=== PATIENT | female | born 1990 | race Caucasian/White ===

== ENCOUNTER 2017-02-06 21:31 | Emergency (ER) | payer OTHER, MEDICAID ==
[~2017-02-06] VITALS: Ht 160 cm; Wt 62.8 kg
[~2017-02-06 21:31] MED LIST: DULO20CA45 PO; IBUP-1222 PO; OXYC-302 PO
[2017-02-06] MEDS ORDERED: OMNIPAQUE 350 MG/ML, 100ML BOTTLE ONE (23:00)
[2017-02-06] MEDS ORDERED: SODIUM CHLORIDE FLUSH 10ML SYR IVF ONE (23:00)
[2017-02-06 23:33] LABS: BLOOD UREA NITROGEN 10 mg/dL (7-18)
[2017-02-07 00:56] VITALS: BP 128/79
[2017-02-07] MEDS ORDERED: ONDANSETRON 2MG/ML, 2ML ONE (01:14)
[2017-02-07] MEDS ORDERED: HYDROmorphone 1 MG/ML, 1ML ONE (01:14)
[2017-02-07] MEDS ORDERED: HYDROmorphone 1 MG/ML, 1ML IVPush PRN (01:30)
[2017-02-07] MEDS ORDERED: ONDANSETRON 2MG/ML, 2ML IVPush ONE (01:30)
== END 2017-02-07 02:17 | disposition home or self-care (01) ==
LOC: ED 23:17
DX: R07.89 Other chest pain (principal); F17.200 Nicotine dependence, unspecified, uncomplicated
CPT/HCPCS: 36415; 71010; 71275; 80048; 82040; 84484; 85025; 85379; 85610; 85730; 93005; 93971; 96374; 96375; 99285; J1170; J2405; Q9967

== ENCOUNTER 2017-03-28 14:13 | Emergency (ER) | payer OTHER, MEDICAID ==
[~2017-03-28] VITALS: Ht 162.6 cm; Wt 62.8 kg
[2017-03-28 14:21] VITALS: BP 117/84
[2017-03-28] MEDS ORDERED: HYDR25TA11 PO (14:35)
[2017-03-28] MEDS ORDERED: BUPR150T73 PO (14:35)
[2017-03-28] MEDS ORDERED: VALA500T4 PO (14:38)
== END 2017-03-28 14:57 | disposition home or self-care (01) ==
LOC: ED 14:50
DX: H66.002 Acute suppurative otitis media without spontaneous rupture of ear drum, left ear (principal)
CPT/HCPCS: 99283

== ENCOUNTER 2017-10-01 17:10 | Emergency (ER) | payer MEDICAID ==
[~2017-10-01] VITALS: Ht 160 cm; Wt 62.8 kg
[~2017-10-01 17:10] MED LIST changes: +BUPR150T73 PO; +HYDR25TA11 PO; +VALA500T4 PO
[2017-10-01 17:43] VITALS: BP 106/68
== END 2017-10-01 18:49 | disposition home or self-care (01) ==
LOC: ED 18:40
DX: S63.521A Sprain of radiocarpal joint of right wrist, initial encounter (principal); M79.7 Fibromyalgia; X58.XXXA Exposure to other specified factors, initial encounter; Y93.89 Activity, other specified; Y99.8 Other external cause status; Y92.89 Other specified places as the place of occurrence of the external cause
CPT/HCPCS: 99284

== ENCOUNTER 2018-05-02 12:12 | Emergency (ER) | payer MEDICAID ==
[~2018-05-02] VITALS: Ht 160 cm; Wt 65.5 kg
[2018-05-02 12:25] VITALS: BP 112/73
== END 2018-05-02 13:33 | disposition home or self-care (01) ==
LOC: ED 13:25
DX: K08.89 Other specified disorders of teeth and supporting structures (principal); F32.9 Major depressive disorder, single episode, unspecified; F41.1 Generalized anxiety disorder
CPT/HCPCS: 99283

== ENCOUNTER 2018-05-25 10:49 | Emergency (ER) | payer MEDICAID ==
[~2018-05-25] VITALS: Ht 160 cm; Wt 64.1 kg
[2018-05-25 10:54] VITALS: BP 112/79
[2018-05-25] MEDS ORDERED: ONDANSETRON ODT 4 MG ONE (12:01)
[2018-05-25] MEDS ORDERED: KETOROLAC 30 MG/1 ML ONE (12:01)
[2018-05-25] MEDS ORDERED: KETOROLAC 30 MG/1 ML IM ONE (12:30)
[2018-05-25] MEDS ORDERED: ONDANSETRON ODT 4 MG PO ONE (12:30)
== END 2018-05-25 12:46 | disposition home or self-care (01) ==
LOC: ED 12:30
DX: K08.89 Other specified disorders of teeth and supporting structures (principal); G43.009 Migraine without aura, not intractable, without status migrainosus; F43.10 Post-traumatic stress disorder, unspecified; M79.7 Fibromyalgia; F17.200 Nicotine dependence, unspecified, uncomplicated
CPT/HCPCS: 96372; 99283; J1885; Q0162

== ENCOUNTER 2019-04-27 09:39 | Emergency (ER) | payer BC, MEDICAID ==
[~2019-04-27] VITALS: Ht 160 cm; Wt 63.0 kg
[2019-04-27 09:51] VITALS: BP 91/64
== END 2019-04-27 10:42 | disposition home or self-care (01) ==
LOC: ED 10:36
DX: J03.90 Acute tonsillitis, unspecified (principal); F32.9 Major depressive disorder, single episode, unspecified; G43.909 Migraine, unspecified, not intractable, without status migrainosus; F17.200 Nicotine dependence, unspecified, uncomplicated; F43.10 Post-traumatic stress disorder, unspecified; Z79.899 Other long term (current) drug therapy; Z88.2 Allergy status to sulfonamides
CPT/HCPCS: 99283

== ENCOUNTER 2019-08-23 05:58 | Emergency (ER) | payer BC ==
[~2019-08-23] VITALS: Ht 160 cm; Wt 68.1 kg
[~2019-08-23 05:58] MED LIST changes: +HYDR-826 PO; -HYDR25TA11 PO
[2019-08-23 06:00] VITALS: BP 120/75
--- NOTE | 2019-08-23 07:09 | NUR ---
REPORT RECIEVED FROM SARAH FRANCIS. PLAN OF CARE DISCUSSED. THIS IS A 28 YO FEMALE COMING IN FOR SORE THROAT SINCE YESTERDAY, GETTING WORSE TODAY. ALSO C/O FACIAL CONGETION AND ITCHY EARS. THROAT SWAB IN PROGRESS AT THIS TIME.
== END 2019-08-23 07:24 | disposition home or self-care (01) ==
LOC: ED 06:25
DX: J02.8 Acute pharyngitis due to other specified organisms (principal); B97.89 Other viral agents as the cause of diseases classified elsewhere; G43.919 Migraine, unspecified, intractable, without status migrainosus; F41.9 Anxiety disorder, unspecified
CPT/HCPCS: 87081; 87880; 99283

== ENCOUNTER 2019-09-03 06:57 | Emergency (ER) | payer BC ==
[~2019-09-03] VITALS: Ht 160 cm; Wt 68.0 kg
[2019-09-03 07:00] VITALS: BP 114/74
[2019-09-03] MEDS ORDERED: KETOROLAC 30 MG/1 ML IM ONE (07:30)
[2019-09-03] MEDS ORDERED: KETOROLAC 30 MG/1 ML ONE (07:36)
== END 2019-09-03 08:23 | disposition home or self-care (01) ==
LOC: ED 07:53
DX: S29.012A Strain of muscle and tendon of back wall of thorax, initial encounter (principal); G43.909 Migraine, unspecified, not intractable, without status migrainosus; X58.XXXA Exposure to other specified factors, initial encounter; Y93.89 Activity, other specified; Y92.89 Other specified places as the place of occurrence of the external cause; Y99.8 Other external cause status
CPT/HCPCS: 96372; 99283; J1885

== ENCOUNTER 2019-10-11 15:02 | Emergency (ER) | payer BC ==
[~2019-10-11] VITALS: Ht 160 cm; Wt 63.7 kg
--- NOTE | 2019-10-11 15:49 | NUR ---
Pt transported on [place] to imaging.
[2019-10-11] MEDS ORDERED: KETOROLAC 30 MG/1 ML IM ONE (16:00)
[2019-10-11] MEDS ORDERED: ONDANSETRON ODT 4 MG PO ONE (16:00)
[2019-10-11] MEDS ORDERED: ACETAMINOPHEN 500 MG TABLET PO ONE (16:00)
[2019-10-11 16:16] LABS: RAPID INFLUENZA A Negative (Negative); RAPID INFLUENZA B Negative (Negative)
[2019-10-11] MEDS ORDERED: KETOROLAC 30 MG/1 ML ONE (16:25)
[2019-10-11] MEDS ORDERED: ACETAMINOPHEN 500 MG TABLET ONE (16:25)
[2019-10-11] MEDS ORDERED: ONDANSETRON ODT 4 MG ONE (16:25)
[2019-10-11 16:32] VITALS: BP 134/85
--- NOTE | 2019-10-11 16:44 | NUR ---
Patient given discharge instructions and they have confirmed that they understand the instructions. Patient ambulatory with steady gait. Pt left with d/c paperwork and all personal belongings.
== END 2019-10-11 16:50 | disposition home or self-care (01) ==
LOC: ED 16:26
DX: B34.9 Viral infection, unspecified (principal); G43.909 Migraine, unspecified, not intractable, without status migrainosus; F17.210 Nicotine dependence, cigarettes, uncomplicated
CPT/HCPCS: 71046; 87400; 93005; 96372; 99284; J1885; Q0162

== ENCOUNTER 2019-12-12 21:20 | Emergency (ER) | payer SELFPAY ==
[~2019-12-12] VITALS: Ht 160 cm; Wt 67.7 kg
[2019-12-12 21:22] VITALS: BP 138/74
[2019-12-12 22:41] LABS: MICROSCOPIC AUTO
[2019-12-12 22:48] LABS: CULTURE INDICATED? YES
--- NOTE | 2019-12-12 23:00 | NUR ---
NIL X 1 WHEN CALLED FOR ROOM
--- NOTE | 2019-12-12 23:15 | NUR ---
NIL X 2 WHEN CALLED FOR ROOM.
--- NOTE | 2019-12-12 23:31 | NUR ---
NIL X 3 WHEN CALLED FOR ROOM.
== END 2019-12-12 23:34 | disposition left against medical advice (07) ==
LOC: ED 23:23
DX: R10.13 Epigastric pain (principal); I51.7 Cardiomegaly
CPT/HCPCS: 81001; 87086; 93005; 99284

== ENCOUNTER 2020-07-07 17:40 | Emergency (ER) | payer OTHER ==
[~2020-07-07] VITALS: Ht 160 cm; Wt 73.6 kg
[2020-07-07] MEDS ORDERED: KETOROLAC 30 MG/1 ML IVPush ONE (18:30)
[2020-07-07] MEDS ORDERED: SODIUM CHLORIDE FLUSH 10ML SYR IVF ONE (18:30)
[2020-07-07] MEDS ORDERED: DEXAMETHASONE 4 MG/ML, 1ML IVPush ONE (18:30)
[2020-07-07] MEDS ORDERED: METOCLOPRAMIDE 5 MG/ML, 2ML IVPush ONE (18:30)
[2020-07-07] MEDS ORDERED: SODIUM CHLORIDE 0.9% 1,000ML IVBOLUS ONE (18:30)
[2020-07-07] MEDS ORDERED: DIPHENHYDRAMINE 50 MG/ML, 1ML IVPush ONE (18:30)
[2020-07-07] MEDS ORDERED: DEXAMETHASONE 4 MG/ML, 1ML ONE (18:49)
[2020-07-07] MEDS ORDERED: DIPHENHYDRAMINE 50 MG/ML, 1ML ONE (18:49)
[2020-07-07] MEDS ORDERED: METOCLOPRAMIDE 5 MG/ML, 2ML ONE (18:49)
[2020-07-07] MEDS ORDERED: KETOROLAC 30 MG/1 ML ONE (18:49)
--- NOTE | 2020-07-07 20:03 | NUR ---
sts feels better after meds, ivf infusing. as
[2020-07-07 20:29] VITALS: BP 99/61
== END 2020-07-07 20:31 | disposition home or self-care (01) ==
LOC: ED 18:30
DX: G43.901 Migraine, unspecified, not intractable, with status migrainosus (principal); H57.12 Ocular pain, left eye; F17.210 Nicotine dependence, cigarettes, uncomplicated
CPT/HCPCS: 96361; 96374; 96375; 99284; 99406; J1100; J1200; J1885; J2765; J7030

== ENCOUNTER 2020-12-25 02:16 | Emergency (ER) | payer OTHER ==
[~2020-12-25] VITALS: Ht 160 cm; Wt 79.4 kg
[~2020-12-25 02:16] MED LIST changes: -OXYC-302 PO; +OXYC1TAB14 PO
[2020-12-25 02:18] VITALS: BP 144/95
== END 2020-12-25 03:00 | disposition home or self-care (01) ==
LOC: ED 02:45
DX: S00.511A Abrasion of lip, initial encounter (principal); Z88.2 Allergy status to sulfonamides; X58.XXXA Exposure to other specified factors, initial encounter; Y93.89 Activity, other specified; Y92.89 Other specified places as the place of occurrence of the external cause; Y99.8 Other external cause status
CPT/HCPCS: 99283

== ENCOUNTER → 2021-02-01 | Outpatient (CLI) | payer OTHER ==
[~2021-02-01] MED LIST changes: +CYCL10TA2 PO; +FREM225A INJ; +METR-90 PO; +RIME75TA PO; +ZOLP10TA PO
[2021-02-01 09:17] LABS: BASOPHILS % (AUTO) 1 % (0-1); EOSINOPHILS % (AUTO) 4 % (1-7); LYMPHOCYTES % (AUTO) 34 % (22-44); MEAN CORPUSCULAR HGB CONC 34.2 g/dL (32.4-35.8); MONOCYTES % (AUTO) 8 % (2-9); NEUTROPHILS % (AUTO) 53 % (42-75); PLATELET COUNT 354 x10^3/uL (130-400); RED BLOOD COUNT 5.37 x10^6/uL (3.82-5.3); RED CELL DISTRIBUTION WIDTH 12.4 % (9.6-15.2)
[2021-02-01 09:25] LABS: MD NO
[2021-02-01 09:29] LABS: MICROSCOPIC AUTO
[2021-02-01 09:30] LABS: ALBUMIN 4.2 g/dL (3.4-5.0); ANION GAP 6 mmol/L (5-15); CALCIUM 9.3 mg/dL (8.5-10.1); CHLORIDE 105 mmol/L (98-107)
[2021-02-01 09:36] LABS: ALANINE AMINOTRANSFERASE 97 U/L (12-78); ALKALINE PHOSPHATASE 55 U/L (45-117); BILIRUBIN,TOTAL 0.4 mg/dL (0.2-1.0)
== END | disposition home or self-care (01) ==
LOC: STAR 07:47
PROVIDERS: ATTEND Obstetrics & Gynecology Gynecology
DX: Z01.812 Encounter for preprocedural laboratory examination (principal); N89.8 Other specified noninflammatory disorders of vagina; Z20.822 Contact with and (suspected) exposure to COVID-19
CPT/HCPCS: 36415; 80053; 81001; 84702; 85025; 87086; U0003

== ENCOUNTER 2021-02-07 10:42 | Day surgery (SDC) | payer OTHER ==
[~2021-02-07] VITALS: Ht 160 cm; Wt 76.2 kg
[2021-02-07 11:27] VITALS: BP 115/81
[2021-02-07 11:51] LABS: HCG UR SG 1.024 (1.003-1.030)
[2021-02-07] MEDS ORDERED: CHLORHEXIDINE 15 ML UDC PO ONE (12:00)
[2021-02-07] MEDS ORDERED: LACTATED RINGERS 1,000 ML IV SCH (12:00)
[2021-02-07] MEDS ORDERED: BUPIVACAINE/PF 0.25% ONE (12:24)
[2021-02-07] MEDS ORDERED: SILVER NITRATE STICK TP ONE (12:25)
[2021-02-07] MEDS ORDERED: EPINEPHRINE 1 MG/ML, 1ML ONE (12:25)
[2021-02-07] MEDS ORDERED: FENTANYL PF 250 MCG/5ML ONE (12:42)
[2021-02-07] MEDS ORDERED: MIDAZOLAM 1 MG/ML, 2ML ONE (12:42)
[2021-02-07] MEDS ORDERED: PROPOFOL 10 MG/ML, 20ML ONE (12:43)
[2021-02-07] MEDS ORDERED: ROCURONIUM 10MG/ML,5ML ONE (12:43)
[2021-02-07] MEDS ORDERED: DEXAMETHASONE 4 MG/ML, 1ML ONE ×2 (12:43→13:32)
[2021-02-07] MEDS ORDERED: CEFAZOLIN 1,000 MG ONE ×2 (12:43→13:32)
[2021-02-07] MEDS ORDERED: BUPIVACAINE/PF-EPI 0.25% 1:200K INFIL ONE (13:09)
[2021-02-07] MEDS ORDERED: EPHEDRINE 50 MG/ML, 1ML IVPush PRN (13:30)
[2021-02-07] MEDS ORDERED: MIDAZOLAM 1 MG/ML, 2ML IV PRN (13:30)
[2021-02-07] MEDS ORDERED: PROMETHAZINE 25 MG/ML, 1ML IVPush PRN (13:30)
[2021-02-07] MEDS ORDERED: DIPHENHYDRAMINE 50 MG/ML, 1ML IVPush PRN ×2 (13:30)
[2021-02-07] MEDS ORDERED: PROMETHAZINE 12.5 MG SUPP PR PRN (13:30)
[2021-02-07] MEDS ORDERED: ONDANSETRON 2MG/ML, 2ML IVPush PRN (13:30)
[2021-02-07] MEDS ORDERED: LABETALOL 5MG/ML, 20ML IV PRN (13:30)
[2021-02-07] MEDS ORDERED: HYDROmorphone 1 MG/ML, 1ML INJ IVPush PRN (13:30)
[2021-02-07] MEDS ORDERED: OXYcodone 5 MG/5 ML ORAL.SOL UDC PO PRN (13:30)
[2021-02-07] MEDS ORDERED: ALBUTEROL SULFATE 2.5 MG/3 ML NPPB PRN (13:30)
[2021-02-07] MEDS ORDERED: DIAZEPAM 5 MG/ML, 2ML IVPush PRN (13:30)
[2021-02-07] MEDS ORDERED: hydrALAzine 20 MG/ML, 1ML IV PRN (13:30)
[2021-02-07] MEDS ORDERED: ACETAMINOPHEN 325 MG TABLET PO PRN (13:30)
[2021-02-07] MEDS ORDERED: MEPERIDINE/PF 25MG/0.5ML IVPush PRN (13:30)
[2021-02-07] MEDS ORDERED: ONDANSETRON 2MG/ML, 2ML ONE ×3 (13:31→14:48)
[2021-02-07] MEDS ORDERED: GLYCOPYRROLATE 0.2MG/1ML, 5ML ONE (13:31)
[2021-02-07] MEDS ORDERED: NEOSTIGMINE 1 MG/ML, 10ML ONE (13:31)
[2021-02-07] MEDS ORDERED: FENTANYL PF 100 MCG/2ML ONE ×2 (14:28→14:52)
[2021-02-07] MEDS: FENTANYL PF 100 MCG/2ML IV PRN ×4 (14:30→14:56)
[2021-02-07] MEDS ORDERED: ACETAMINOPHEN 650 MG/20.3 ML UDC ONE (14:39)
[2021-02-07] MEDS ORDERED: OXYcodone 5 MG/5 ML ORAL.SOL UDC ONE (14:39)
== END 2021-02-07 21:00 | disposition home or self-care (01) ==
LOC: OUT 10:42
PROVIDERS: ATTEND Obstetrics & Gynecology Gynecology
DX: Z30.2 Encounter for sterilization (principal); N90.60 Unspecified hypertrophy of vulva; N70.11 Chronic salpingitis; N85.8 Other specified noninflammatory disorders of uterus; N94.10 Unspecified dyspareunia; N89.8 Other specified noninflammatory disorders of vagina; G43.909 Migraine, unspecified, not intractable, without status migrainosus; F32.9 Major depressive disorder, single episode, unspecified; D64.9 Anemia, unspecified; Z79.899 Other long term (current) drug therapy; Z88.8 Allergy status to other drugs, medicaments and biological substances; Z98.890 Other specified postprocedural states
CPT/HCPCS: 15839; 36415; 56700; 58670; 81025; 86850; 86900; 88302; J0171; J0690; J1100; J1170; J2250; J2405; J2704; J2710; J3010; J7120